=== PATIENT | male | born 1990 | race Caucasian/White ===

== ENCOUNTER 2017-03-14 21:42 | Emergency (ER) | payer BC ==
[2017-03-14] MEDS ORDERED: AUGMENTIN 875-1 EAC1 PO (22:18)
[2017-03-14 22:40] VITALS: BP 121/85
== END 2017-03-14 22:40 | disposition home or self-care (01) ==
LOC: ED 21:42
DX: S60.471A Other superficial bite of left index finger, initial encounter (principal); W55.01XA Bitten by cat, initial encounter; Y93.9 Activity, unspecified; Y92.009 Unspecified place in unspecified non-institutional (private) residence as the place of occurrence of the external cause

== ENCOUNTER → 2017-10-10 | Outpatient (CLI) | payer BC ==
[~2017-10-10] MED LIST: AUGMENTIN 875-1 EAC1 PO
== END ==
LOC: LAB 08:59
DX: B99.8 Other infectious disease (principal)

== ENCOUNTER → 2021-01-17 | Outpatient (CLI) | payer BC | LOC: LAB 10:14 | DX: R05 Cough (principal); Z20.822 Contact with and (suspected) exposure to COVID-19 ==